=== PATIENT | male | born 1945 | race Caucasian/White ===

== ENCOUNTER → 2020-04-16 | Outpatient (CLI) | payer OTHER ==
[~2020-04-16] MED LIST: ALLOPURINOL 10100 M1 PO; ASPIR 8181 MG PO; ATORVASTATIN CA40 MG PO; CELEBREX 200 M200 M1 PO; CELEXA10 MG PO; CLOPIDOGREL75 MG PO; CO Q-10100 MG PO; FENOFIBRATE160 MG PO; FOLIC ACID1 MG PO; LISINOPRIL5 MG PO; PYRIDOXINE HCL50 MG PO; UNICOMPLEX M TA1 TA1 PO; VITAMIN B-12500 MCG PO; VITAMIN D1000 UNI1 PO; ZETIA10 MG PO; ZOCOR20 MG PO
== END ==
LOC: CAT 15:17
PROVIDERS: ATTEND Internal Medicine Cardiovascular Disease
DX: Z13.6 Encounter for screening for cardiovascular disorders (principal); I25.10 Atherosclerotic heart disease of native coronary artery without angina pectoris; E78.00 Pure hypercholesterolemia, unspecified

== ENCOUNTER → 2020-04-16 | Outpatient (CLI) | payer OTHER ==
[~2020-04-16] MED LIST changes: +CELECOXIB100 MG PO; +CELEXA 10 MG TA10 M1 PO; +COENZYME Q10100 MG PO; +DOLOGEN CAPLET1 EACH PO; +FISH OIL 1,001000 M3 PO; +MELATONIN1 MG/1 ML PO; +PLAVIX 75 MG TA75 MG PO; +REPATHA SU140 MG/1 M INJECTION; +SLEEP AID50 MG PO; +TRIGLIDE160 MG PO
== END ==
LOC: SJCVC 15:52
PROVIDERS: ATTEND Internal Medicine Cardiovascular Disease
DX: I44.1 Atrioventricular block, second degree (principal); I45.10 Unspecified right bundle-branch block; R00.0 Tachycardia, unspecified; R94.31 Abnormal electrocardiogram [ECG] [EKG]; E78.00 Pure hypercholesterolemia, unspecified; M19.90 Unspecified osteoarthritis, unspecified site; K21.9 Gastro-esophageal reflux disease without esophagitis; E78.5 Hyperlipidemia, unspecified; I25.810 Atherosclerosis of coronary artery bypass graft(s) without angina pectoris; M10.9 Gout, unspecified; Z95.1 Presence of aortocoronary bypass graft; Z87.891 Personal history of nicotine dependence; Z79.899 Other long term (current) drug therapy; Z82.49 Family history of ischemic heart disease and other diseases of the circulatory system; Z79.82 Long term (current) use of aspirin

== ENCOUNTER → 2020-04-18 | Outpatient (CLI) | payer OTHER ==
[~2020-04-18] MED LIST changes: -CELECOXIB100 MG PO; -CELEXA 10 MG TA10 M1 PO; -COENZYME Q10100 MG PO; -DOLOGEN CAPLET1 EACH PO; -FISH OIL 1,001000 M3 PO; -MELATONIN1 MG/1 ML PO; -PLAVIX 75 MG TA75 MG PO; -REPATHA SU140 MG/1 M INJECTION; -SLEEP AID50 MG PO; -TRIGLIDE160 MG PO
== END ==
LOC: SJCVCIMAG 12:11
PROVIDERS: ATTEND Internal Medicine Cardiovascular Disease
DX: I65.23 Occlusion and stenosis of bilateral carotid arteries (principal); I45.10 Unspecified right bundle-branch block; R00.0 Tachycardia, unspecified; I49.1 Atrial premature depolarization; I25.10 Atherosclerotic heart disease of native coronary artery without angina pectoris; E78.5 Hyperlipidemia, unspecified; I10 Essential (primary) hypertension; Z79.899 Other long term (current) drug therapy; Z87.891 Personal history of nicotine dependence

== ENCOUNTER 2020-04-26 06:26 | Outpatient (CLI) | payer OTHER ==
[2020-04-26] VITALS (11 sets, daily range): BP systolic 106–144; BP diastolic 34–70
[~2020-04-26] VITALS: Ht 172.7 cm; Wt 85.3 kg
[2020-04-26 07:22] LABS: HEMATOCRIT 43.2 % (42.0-52.0); HEMOGLOBIN 14.7 gm/dL (14.0-18.0); MCH 32.9 pg (26.0-34.0); MCHC 33.9 g/dL (28.0-37.0); RBC 4.46 mil/uL (4.50-6.00); RDW 13.6 % (10.5-14.5); WBC 5.5 thou/uL (4.0-11.0)
[2020-04-26 07:29] LABS: CALCIUM 8.9 mg/dL (8.5-10.1); CREATININE 1.3 mg/dL (0.7-1.3); POTASSIUM 4.2 mmol/L (3.5-5.1)
[2020-04-26] MEDS ORDERED: PLAVIX 75 MG TA75 MG PO (07:38)
[2020-04-26] MEDS ORDERED: COENZYME Q10100 MG PO (07:40)
[2020-04-26] MEDS ORDERED: DOLOGEN CAPLET1 EACH PO (07:40)
[2020-04-26] MEDS ORDERED: SLEEP AID50 MG PO (07:41)
[2020-04-26] MEDS ORDERED: REPATHA SU140 MG/1 M INJECTION (07:43)
[2020-04-26] MEDS ORDERED: TRIGLIDE160 MG PO (07:44)
[2020-04-26] MEDS ORDERED: FISH OIL 1,001000 M3 PO (07:44)
[2020-04-26] MEDS ORDERED: FOLIC ACID1 MG PO (07:45)
[2020-04-26] MEDS ORDERED: MELATONIN1 MG/1 ML PO (07:46)
[2020-04-26] MEDS ORDERED: CELEXA 10 MG TA10 M1 PO (07:47)
[2020-04-26] MEDS ORDERED: CELECOXIB100 MG PO (07:48)
--- NOTE | 2020-04-26 07:56 | EKG ---
[facility] [place] [address] ELECTROCARDIOGRAM REPORT Name: SUSANNA DOMINGUEZ Room #: REG [facility]#: [id number] Admission: 04/26/20 Attend Phys: Dangelo Wyman MD, Discharge: Date of : 45 Report #: [id number] THIS REPORT FOR: cc: Deni Garcia MD, Brian G. MD Lundgren,Lemuel Knapp MD [facility] ~ THIS REPORT FOR: //name// [facility] Test Date: 2020-04-26 Test Time: 07:19:16 Pat Name: SUSANNA DOMINGUEZ Department: Room: Gender: [employer] Captain: [facility] : 1945 Requested By: Dangelo Wyman Order Number: [id number] MD: Lemuel Perry Measurements Intervals [place] Rate: 75 P: 48 MA: 167 QRS: 69 QRSD: 141 T: 0 QT: 423 QTc: 473 Interpretive Statements Sinus rhythm Atrial premature complexes Right bundle branch block Compared to ECG 04/09/2018 07:13:24 No significant change was found Electronically Signed On 04-26-2020 7:56:38 CDT by Lemuel Perry [email or web address] <ELECTRONICALLY SIGNED> By: Lemuel Perry MD, [facility] 04/26/20 0756 8 8 Lemuel Perry MD, [facility] /EPI
--- NOTE | 2020-04-26 12:00 | NUR ---
PT ARRIVED TO ROOM VIA CART. AT [facility]. PT IS A/OX4. DENIES PAIN. IVF INFUSING TO RIGHT ARM. PLEASENT. GROIN SITE TO RIGHT GROIN ABSENT OF HEMATOMA. DRESSING IS CLEAN DRY INTACT.
--- NOTE | 2020-04-26 17:33 | CATHLAB ---
[facility] [place] [address] INVASIVE PROCEDURE REPORT Name: SUSANNA DOMINGUEZ J II Room #: 200-I [facility] MARGARITA Chase#: [id number] Admission: 04/26/20 Attend Phys: Dangelo Wyman MD, Discharge: Date of : 45 Report #: [id number] THIS REPORT FOR: cc: Deni Garcia MD, Brian G. MD Mancuso, Gerald M. MD [facility] ~ APPROVED REPORT Study performed: 04/26/2020 07:33:56 Patient Details Patient Status: Out-Patient Room #: The patient is a 75 year-old male Event Personnel Dangelo Wyman Double Cutter, Yeison Evans RN RN, Ashtyn Blum RTR Da Fuchs Sherra RTR Monitor Procedures Performed Art Access - R femoral artery* Left Heart Cath w/or w/o Coronaries 4174771 [facility] PTCA Single Vessel OM 0200028 PCISINGLE 72373 Initial Mod Sed Same Phys/QHP Gr5y 658593 90199 Mod Sed Same Phys/QHP Ea 745304 Hemostasis w/ Mynx Aortogram Abdominal Peripheral Angio 205693 Indication Chest pain Procedure Narrative The Right Groin^ was infiltrated with 1% Lidocaine subcutaneous anesthesia. A PINNACLE 6FR Sheath #[id number] sheath was inserted into the RFA^. Coronary angiography was performed using coronary diagnostic catheters. The right coronary system was accessed and visualized with a JR4 catheter. The left coronary system was accessed and visualized with a JL4 catheter. The left ventricle was accessed and visualized with a PIGTAIL catheter. Left ventriculogram was performed in 30 degree projection. An aortogram of the abdominal aorta was performed. Closure device was deployed with a 6 Fr MYNXGRIP 6/7F #[id number]. The patient tolerated the procedure well and there were no complications associated with the procedure. There was no hematoma. Intraoperative Conscious Sedation Sedation start time: 851 Case end Time: 944 [facility] [address] [place] [address] INVASIVE PROCEDURE REPORT Name: SUSANNA DOMINGUEZ II Room #: 200-I [facility] Salvatore#: [id number] Admission: 04/26/20 Attend Phys: Dangelo Wyman, Discharge: Date of : 45 Report #: [id number] Fentanyl 50 mcg Versed 1 mg Fluoro Time: 6.20 minutes Dose: DAP 52227.50 cGycm2 1809 mGy Contrast Type and Amount: Visipaque 160 ml Hemodynamics The aortic pressure is 126/52 mmHg with a mean of 80 mmHg. The left ventricular pressure is 125/13 mmHg with a mean of mmHg. The left ventricular end diastolic pressure is 24 mmHg. PCI Technique Lesion Percutaneous coronary intervention was performed on the first obtuse marginal branch segment. A LAUNCHER 6FR EBU 3.5 #[id number] Guide Catheter was used to engage the ostium. A Luge Wire .014 x 182CM #[id number] Interventional Guidewire was used to cross the lesion. BALLOON DILATION A Balloon catheter Sprinter OTW 2.25 x 12 #[id number] was inserted and inflated up to 6.00atm for 13seconds. Additional Inflation: 10.00atm for 20seconds. Additional Inflation: 18.00atm for 32seconds. POST STENT DEPLOYMENT BALLOON DILATION A Balloon catheter TREK NC OTW 2.5 X 12 #[id number] was inserted and inflated up to 18.00atm for 37seconds. Conclusion #1. Successful PTCA of a focal area of in-stent restenosis in a nondominant but moderately large circumflex OM 99% to 0% re-dilated this segment with a noncompliant 2.5 mm balloon to 20 farshad. Moderate disease in this more proximal circumflex OM with multiple prior stents placed #2 left main mild disease giving rise to LAD and circumflex #3 the LAD is mild to moderately disease it extends to the apex proximal calcification is noted no occlusive disease #4 dominant right also heavily calcified and prior proximal stent mid vessel lesion of 50% diffuse distal disease #5. normal left ventricular size and systolic function hyperdynamic EF 65 to 70% #6 abdominal aorta revealing mild aortic ectasia no aneurysm bilateral renal arteries and iliac system mildly diseased Recommendations and plan: Continue aggressive risk factor modification. Will continue with dual antiplatelet therapy. Patient [facility] [address] [place] [address] INVASIVE PROCEDURE REPORT Name: SUSANNA DOMINGUEZ II Room #: 200-I [facility] ANDREW Chase#: [id number] Admission: 04/26/20 Attend Phys: Dangelo Wyman, Discharge: Date of : 45 Report #: [id number] has prior multiple stents previously placed one focal area of high-grade in-stent restenosis was dilated as noted above. Continue aggressive risk factor modification CCU to follow post PTCA protocol <ELECTRONICALLY SIGNED> By: Dangelo Wyman MD, FACC 04/26/20 1733 [id number] Dangelo Wyman MD, FACC /INF
--- NOTE | 2020-04-26 18:05 | NUR ---
PT ADMITTED TODAY POST SCHEDULED PCI. ANGIOPLASTY DONE TO OM3. PT HAS RIGHT GROIN SITE THAT WAS MINXED. SITE WDL. NO HEMATOMA NOTED, SOFT TO PALPATION. BEDREST UP. PT UP WITH STANDBY FOR IV. IV TO RIGHT HAND NS @ 75. HOME FOR THE NIGHT. PLANS FOR D/C TOMORROW.
[2020-04-27 00:13] VITALS: BP 111/57
--- NOTE | 2020-04-27 00:15 | NUR ---
PT IS ALERT AND ORIENTED X4. LUNGS ARE CLEAR . ON ROOM AIR. RIGHT GROIN SITE CLEAN DRY AND INTACT NO HEMATOMA. NO COMPLAINTS OF PAIN NOTED. TURNS HIMSELF IN BED FOR COMFORT. ABDOMEN IS ROUND AND BOWEL SOUNDS ACTIVE. NURSE CALL LIGHT WITHIN REACH IF NEEDS ASSISTANCE FROM STAFF.
[2020-04-27 04:00] VITALS: BP 105/56
[2020-04-27 05:24] LABS: HEMATOCRIT 42.3 % (42.0-52.0); HEMOGLOBIN 14.1 gm/dL (14.0-18.0); MCH 32.4 pg (26.0-34.0); MCHC 33.3 g/dL (28.0-37.0); MCV 97.3 fL (80.0-100.0); RBC 4.35 mil/uL (4.50-6.00); RDW 13.6 % (10.5-14.5); WBC 5.8 thou/uL (4.0-11.0)
[2020-04-27 07:27] VITALS: BP 139/68
--- NOTE | 2020-04-27 07:54 | EKG ---
[facility] [place] [address] ELECTROCARDIOGRAM REPORT Name: SUSANNA DOMINGUEZ J II Room #: 200-I [facility] M.R.#: [id number] Admission: 04/26/20 Attend Phys: Dangelo Wyman MD, Discharge: Date of : 45 Report #: [id number] THIS REPORT FOR: cc: Deni Garcia MD, Brian G. MD Lundgren,Lemuel Knapp MD [facility] ~ THIS REPORT FOR: //name// [facility] Test Date: 2020-04-27 Test Time: 07:20:55 Pat Name: SUSANNA DOMINGUEZ Department: Room: 200 I Gender: M [employer] Operator: [facility] : 1945 Requested By: Dora Roberts Order Number: [id number] MD: Lemuel Perry Measurements Intervals [place] Rate: 86 P: 52 AR: 163 QRS: 85 QRSD: 143 T: -1 QT: 396 QTc: 474 Interpretive Statements Sinus rhythm with atrial premature complexes Right bundle branch block Baseline wander in lead(s) V1 Compared to ECG 04/26/2020 07:19:16 No significant change was found Electronically Signed On 04-27-2020 7:54:02 CDT by Lemuel Perry [email or web address] <ELECTRONICALLY SIGNED> By: Lemuel Perry MD, FACC 04/27/20 0754 9 9 Lemuel Perry MD, FACC /EPI
[2020-04-27] MEDS ORDERED: REPATHA SU140 MG/1 M INJECTION (07:59)
[2020-04-27 10:12] VITALS: BP 147/66
[2020-04-27 10:40] LABS: ALBUMIN 3.5 g/dL (3.4-5.0); ANION GAP 13 mmol/L (7-16); BUN 18 mg/dL (7-18); CALCIUM 8.7 mg/dL (8.5-10.1); CHLORIDE 105 mmol/L (98-107); CO2 22 mmol/L (21-32); CREATININE 1.2 mg/dL (0.7-1.3); GLUCOSE 93 mg/dL (74-106); POTASSIUM 4.2 mmol/L (3.5-5.1); SGOT 25 U/L (15-37); SGPT 28 U/L (30-65); SODIUM 140 mmol/L (136-145); TOTAL BILIRUBIN 0.6 mg/dL (0.2-1.0); TOTAL PROTEIN 6.7 g/dL (6.4-8.2); TROPONIN-I <0.06 ng/mL (<0.06)
--- NOTE | 2020-04-27 11:45 | NUR ---
cm completed initial assessment to discuss d/c planning. pt alert and oriented. pt lives at home w/spouse. pt active and independent w/adls. pt drives a vehicle. pt denies hx w/snf of hh. pt has 0 dmes. pt goal is to rtrn home at d/c. n/n anticipated needs from cm. following,
--- NOTE | 2020-04-27 12:38 | NUR ---
ASSUMED CARE AT CHANGE OF SHIFT. RIGHT GROIN SIGHT C/D/I. DENIES PAiN, DENIES SOB. CARDIAC METAL SPINNER ROUNDING AND PROVIDED CARDIAC EDUCATION. IV AND TELE REMOVED. REVIEW DC PAPER WORK. DC HOME WITH SELF CARE.
== END 2020-04-27 11:30 | disposition home or self-care (01) ==
LOC: CATH 06:26 → 2N 12:12 → CATH 12:48
PROVIDERS: Nurse Practitioner Adult Health; ATTEND Internal Medicine Cardiovascular Disease
DX: R07.9 Chest pain, unspecified (principal); I25.10 Atherosclerotic heart disease of native coronary artery without angina pectoris; T82.855A Stenosis of coronary artery stent, initial encounter; I77.819 Aortic ectasia, unspecified site; I70.1 Atherosclerosis of renal artery; I10 Essential (primary) hypertension; E78.5 Hyperlipidemia, unspecified; Z90.49 Acquired absence of other specified parts of digestive tract; Z98.52 Vasectomy status; Z85.3 Personal history of malignant neoplasm of breast; Z98.890 Other specified postprocedural states; Z79.899 Other long term (current) drug therapy; Y83.8 Other surgical procedures as the cause of abnormal reaction of the patient, or of later complication, without mention of misadventure at the time of the procedure
CPT/HCPCS: 10797

== ENCOUNTER → 2020-05-24 | Outpatient (CLI) | payer OTHER ==
[~2020-05-24] MED LIST changes: +CELECOXIB100 MG PO; +CELEXA 10 MG TA10 M1 PO; +COENZYME Q10100 MG PO; +DOLOGEN CAPLET1 EACH PO; +FISH OIL 1,001000 M3 PO; +MELATONIN1 MG/1 ML PO; +PLAVIX 75 MG TA75 MG PO; +REPATHA SU140 MG/1 M INJECTION; +SLEEP AID50 MG PO; +TRIGLIDE160 MG PO
== END ==
LOC: SJCVC 14:39
PROVIDERS: ATTEND Internal Medicine Cardiovascular Disease
DX: R94.31 Abnormal electrocardiogram [ECG] [EKG] (principal); I45.10 Unspecified right bundle-branch block; I25.10 Atherosclerotic heart disease of native coronary artery without angina pectoris; E78.01 Familial hypercholesterolemia; I10 Essential (primary) hypertension; I65.23 Occlusion and stenosis of bilateral carotid arteries

== ENCOUNTER → 2020-12-31 | Outpatient (CLI) | payer OTHER | LOC: SJCVCIMAG 09:05 | PROVIDERS: ATTEND Internal Medicine Cardiovascular Disease | DX: I25.10 Atherosclerotic heart disease of native coronary artery without angina pectoris (principal); I49.1 Atrial premature depolarization; I10 Essential (primary) hypertension; R06.09 Other forms of dyspnea; R53.83 Other fatigue; Z79.899 Other long term (current) drug therapy; Z87.891 Personal history of nicotine dependence ==